=== PATIENT | female | born 1970 | race American Indian/Alaskan Native ===

== ENCOUNTER 2017-04-30 00:01 | Emergency (ER) | payer MEDICARE ==
[2017-04-30] MEDS ORDERED: PROVENTIL IH ONE ×3 (00:09→09:36)
[2017-04-30] MEDS ORDERED: ATROVENT IH ONE ×2 (05:06→09:36)
[2017-04-30 05:34] LABS: Basophils % (Auto) 0.6 % (0.0-1.8); Hematocrit 38.2 % (30.3-42.9); Mean Corpuscular HGB Conc 31 % (30-34); Platelet Count 273 K/mm3 (140-440); Red Blood Count 5.49 M/mm3 (3.65-5.03); Red Cell Distribution Width 16.1 % (13.2-15.2); White Blood Count 10.2 K/mm3 (4.5-11.0)
[2017-04-30 05:39] LABS: Mean Corpuscular Volume 70 fl (79-97)
[2017-04-30 05:40] LABS: Mean Corpuscular Hemoglobin 22 pg (28-32)
--- NOTE | 2017-04-30 05:57 | XRay Report ---
FINAL REPORT EXAM: XR CHEST ROUTINE 2V HISTORY: sob wheezing TECHNIQUE: PA and lateral views of the chest were submitted. Comparison is made to the study of 01/24/2016. FINDINGS: Heart size and mediastinum appear normal. The lungs are clear. Pleural fluid is not seen. The bones and soft tissues do not show any acute changes. IMPRESSION: No active chest disease.
[2017-04-30 05:58] LABS: Alanine Aminotransferase 28 units/L (7-56); Albumin 4.3 g/dL (3.9-5); Albumin/Globulin Ratio 1.5 %; Alkaline Phosphatase 96 units/L (35-129); Anion Gap 21 mmol/L; BUN/Creatinine Ratio 19; Blood Urea Nitrogen 13 mg/dL (7-17); Calcium 9.3 mg/dL (8.4-10.2); Carbon Dioxide 23 mmol/L (22-30); Chloride 102.5 mmol/L (98-107); Glucose 138 mg/dL (65-100); Potassium 4.4 mmol/L (3.6-5.0); Sodium 142 mmol/L (137-145); Total Protein 7.2 g/dL (6.3-8.2)
[2017-04-30] MEDS ORDERED: TESSALON PERLES PO ONE (10:17)
[2017-04-30] MEDS ORDERED: DELTASONE PO ONE (10:17)
--- NOTE | 2017-04-30 10:25 | Emergency Department Report ---
HPI - General Chief Complaint: Adult Asthma Time Seen by Provider: 04/30/17 10:01 - HPI HPI: This is a 46 year-old female who presents to the emergency department with a complaint of shortness of breath, mixed dry and productive cough and some wheezing that has been going on for the past 5-6 days. She does have a history of asthma and says that she has been using her albuterol inhaler and nebulizer treatments without much relief. She has a primary care physician but has been unable to get in to see them. She recently drove to [place] for Thanksgiving with her family. She denies any fever, chest pain, back pain, nausea, vomiting or diaphoresis. She has a history of this asthma, previously diagnosed with hypertension but not currently on medication and has a history of anemia. ED Past Medical Hx - Past Medical History Hx Hypertension: Yes (taken off medication years ago) Hx Heart Attack/AMI: No Hx Congestive Heart Failure: No Hx Diabetes: No Hx Liver Disease: No Hx Seizures: No Hx Asthma: Yes (severe and not on any symbicort while in hospital.) Hx COPD: Yes Additional medical history: anemia - Surgical History Additional Surgical History: AFRO to check for blockage in legs - Social History Smoking Status: Never Smoker Substance Use Type: None - Medications Home Medications: Home Medications Medication Instructions Recorded Confirmed Last Taken Type Montelukast [Singulair] 10 mg PO QDAY 02/10/13 04/30/17 02/10/13 08:00 History Budesoni/Formotero 160-4.5(Nf) 2 puff IH BID #1 inha 09/22/13 04/30/17 Unknown Rx [Symbicort 160-4.5 (Nf)] Multivitamin Tab W-MINERAL 1 each PO QDAY #30 tablet 08/11/14 04/30/17 Unknown Rx [Multiple Vitamin/Mineral (Theragran M)] ALBUTEROL NEB's [Proventil 0.083% 2.5 mg IH TID PRN #1 box 11/10/15 04/30/17 Unknown Rx NEBS] Albuterol Sulfate [Ventolin HFA] 2 puff IH Q4H PRN #1 hfa.aer.ad 11/10/15 Unknown Rx Benzonatate [Tessalon Perles] 100 mg PO Q8HR PRN #20 capsule 04/30/17 Unknown Rx Ferrous Sulfate [Iron] 325 mg PO TID 04/30/17 04/30/17 Unknown History Ranitidine HCl [Acid Platform Software Engineer] 150 mg PO DAILY 04/30/17 04/30/17 Unknown History guaiFENesin/CODEINE [Robitussin AC] 5 ml PO Q6H PRN #100 ml 04/30/17 Unknown Rx predniSONE [Deltasone] 20 mg PO BID #10 tab 04/30/17 Unknown Rx ED Review of Systems ROS: Stated complaint: JACOB Other details as noted in HPI Comment: All other systems reviewed and negative Constitutional: denies: chills, fever Eyes: denies: eye pain, eye discharge, vision change ENT: denies: ear pain, throat pain Respiratory: cough, shortness of breath, wheezing Cardiovascular: denies: chest pain, palpitations Gastrointestinal: denies: abdominal pain, nausea, diarrhea Genitourinary: denies: urgency, dysuria, discharge Musculoskeletal: denies: back pain, joint swelling, arthralgia Skin: denies: rash, lesions Neurological: denies: headache, weakness, paresthesias Physical Exam - Physical Exam Vital Signs: Vital Signs 04/30/17 04/30/17 04/30/17 00:06 00:24 04:59 Temperature 98 F Pulse Rate 116 H 92 H Pulse Rate [ 102 H Anterior Bilateral Throughout] Pulse Rate [ Posterior Bilateral Bases ] Respiratory 24 17 Rate Respiratory 18 Rate [Anterior Bilateral Throughout] Respiratory Rate [Posterior Bilateral Bases] Blood Pressure 151/90 Blood Pressure 182/86 [Left] O2 Sat by Pulse 99 98 Oximetry 04/30/17 04/30/17 04/30/17 06:12 06:14 07:15 Temperature 98.4 F 98.7 F Pulse Rate 109 H 96 H Pulse Rate [ Anterior Bilateral Throughout] Pulse Rate [ Posterior Bilateral Bases ] Respiratory 20 22 15 Rate Respiratory Rate [Anterior Bilateral Throughout] Respiratory Rate [Posterior Bilateral Bases] Blood Pressure Blood Pressure 185/100 150/95 [Left] O2 Sat by Pulse 95 99 Oximetry 04/30/17 04/30/17 09:46 10:11 Temperature Pulse Rate Pulse Rate [ Anterior Bilateral Throughout] Pulse Rate [ 85 88 Posterior Bilateral Bases ] Respiratory Rate Respiratory Rate [Anterior Bilateral Throughout] Respiratory 20 20 Rate [Posterior Bilateral Bases] Blood Pressure Blood Pressure [Left] O2 Sat by Pulse Oximetry Physical Exam: GENERAL: The patient is well-developed well-nourished. HENT: Normocephalic. Atraumatic. Patient has moist mucous membranes. EYES: Extraocular motions are intact. Pupils equal reactive to light bilaterally. NECK: Supple. Trachea is midline. CHEST/LUNGS: Mild wheezing throughout the chest. There is a dry cough heard during examination. No tachypnea accessory muscle use. There is no respiratory distress noted. HEART/CARDIOVASCULAR: Regular. There is no tachycardia. There is no gallop rub or murmur. ABDOMEN: Abdomen is soft, nontender. Patient has normal bowel sounds. Morbidly obese habitus. SKIN: Skin is warm and dry. NEURO: The patient is awake, alert, and oriented. The patient is cooperative. The patient has no focal neurologic deficits. The patient has normal speech. MUSCULOSKELETAL: There is no tenderness or deformity. There is no limitation range of motion. There is no evidence of acute injury. ED Course Vital Signs 04/30/17 04/30/17 04/30/17 00:06 00:24 04:59 Temperature 98 F Pulse Rate 116 H 92 H Pulse Rate [ 102 H Anterior Bilateral Throughout] Pulse Rate [ Posterior Bilateral Bases ] Respiratory 24 17 Rate Respiratory 18 Rate [Anterior Bilateral Throughout] Respiratory Rate [Posterior Bilateral Bases] Blood Pressure 151/90 Blood Pressure 182/86 [Left] O2 Sat by Pulse 99 98 Oximetry 04/30/17 04/30/17 04/30/17 06:12 06:14 07:15 Temperature 98.4 F 98.7 F Pulse Rate 109 H 96 H Pulse Rate [ Anterior Bilateral Throughout] Pulse Rate [ Posterior Bilateral Bases ] Respiratory 20 22 15 Rate Respiratory Rate [Anterior Bilateral Throughout] Respiratory Rate [Posterior Bilateral Bases] Blood Pressure Blood Pressure 185/100 150/95 [Left] O2 Sat by Pulse 95 99 Oximetry 04/30/17 04/30/17 09:46 10:11 Temperature Pulse Rate Pulse Rate [ Anterior Bilateral Throughout] Pulse Rate [ 85 88 Posterior Bilateral Bases ] Respiratory Rate Respiratory Rate [Anterior Bilateral Throughout] Respiratory 20 20 Rate [Posterior Bilateral Bases] Blood Pressure Blood Pressure [Left] O2 Sat by Pulse Oximetry ED Medical Decision Making - Lab Data Result diagrams: 04/30/17 05:16 04/30/17 05:16 - EKG Data -: EKG Interpreted by Me EKG shows normal: sinus rhythm, axis, intervals, QRS complexes (incomplete right bundle branch block), ST-T waves Rate: tachycardia (106 bpm) - EKG Data When compared to previous EKG there are: previous EKG unavailable Interpretation: other (sinus tachycardia at 106 bpm, incomplete right bundle branch block, no ST elevation [place]) - Radiology Data Radiology results: image reviewed interpreted by me: Chest x-ray does not show any acute process. There are no pleural effusions, obvious pneumonia and there is no pneumothorax. - Medical Decision Making The patient presents with 5 day history of some wheezing, shortness of breath and coughing. She received multiple nebulized breathing treatments here and is breathing much more comfortably. Labs are been unremarkable including a negative troponin and negative d-dimer. Chest x-ray does not show any pleural effusion, pneumonia or pneumothorax. She was given some Tessalon Perles for cough and steroids. She feels that she is improved enough to attempt outpatient treatment. She will go home with Tessalon Perles, Robitussin-AC and a five-day course of steroids. She says that she has enough albuterol at home. She will return to the ER with any worsening of her symptoms or any acute distress. Vital signs stable throughout her ED course. - Differential Diagnosis asthma, bronchitis, pneumonia, PE Critical Care Time: No Critical care attestation.: If time is entered above; I have spent that time in minutes in the direct care of this critically ill patient, excluding procedure time. ED Disposition Clinical Impression: Bronchitis Asthma exacerbation Qualifiers: Asthma severity: unspecified severity Asthma persistence: unspecified Qualified Code(s): J45.901 - Unspecified asthma with (acute) exacerbation Disposition: DC-01 TO HOME OR SELFCARE Is pt being admited?: No Condition: Stable Instructions: Asthma (ED), Acute Bronchitis (ED) Additional Instructions: Please follow-up with your primary care physician in the next few days. Use your albuterol inhaler and nebulizer as needed. Take the steroids as prescribed. Return to the emergency Department with any worsening of your symptoms or any acute distress. You have been prescribed a medication that is sedating and therefore should not be taken prior to driving, working, and responsible for children and in no way should be mixed with alcohol of any quantity. Prescriptions: Benzonatate [Tessalon Perles] 100 mg PO Q8HR PRN #20 capsule PRN Reason: Cough guaiFENesin/CODEINE [Robitussin AC] 5 ml PO Q6H PRN #100 ml PRN Reason: Cough predniSONE [Deltasone] 20 mg PO BID #10 tab Referrals: PRIMARY CARE, [Primary Care Provider] - [facility] Time of Disposition: 12:12
[2017-04-30 12:39] VITALS: BP 134/66
== END 2017-04-30 12:52 | disposition home or self-care (01) ==
LOC: ED 00:01 → EEVIPCON 00:01 → ED 12:52
DX: J45.901 Unspecified asthma with (acute) exacerbation (principal); I10 Essential (primary) hypertension; D64.9 Anemia, unspecified; J44.9 Chronic obstructive pulmonary disease, unspecified
CPT/HCPCS: 36415; 71020; 80053; 83880; 84484; 85025; 85379; 93005; 93010; 94640; 99284; J7512

== ENCOUNTER 2017-05-05 01:07 | Emergency (ER) | payer OTHER, MEDICARE ==
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
[2017-05-05] MEDS ORDERED: DUONEB *Not for PRN Use IH ONE (03:17)
[2017-05-05] MEDS ORDERED: PROVENTIL IH ONE (03:17)
[2017-05-05] MEDS ORDERED: ZOFRAN ODT PO ONE (03:18)
[2017-05-05 03:36] LABS: Bilirubin,Urine NEG (Negative); Blood,Urine LG (Negative); Ketones,Urine NEG (Negative); Leukocyte Esterase,Urine TR (Negative); Mucus,Urine 1+ /HPF; Nitrite,Urine NEG (Negative); Urobilinogen,Urine < 2.0 mg/dL (<2.0)
[2017-05-05 03:48] LABS: RBC,Urine > 182.0 /HPF (0.0-6.0)
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
[2017-05-05] MEDS ORDERED: TYLENOL PO ONE (04:13)
[2017-05-05 04:40] VITALS: BP 165/103
== END 2017-05-05 04:38 | disposition home or self-care (01) ==
LOC: ED 01:07
DX: M54.5 Low back pain (principal); J45.21 Mild intermittent asthma with (acute) exacerbation; I10 Essential (primary) hypertension; J44.9 Chronic obstructive pulmonary disease, unspecified; D64.9 Anemia, unspecified; Z91.010 Allergy to peanuts; Z91.018 Allergy to other foods; V89.2XXA Person injured in unspecified motor-vehicle accident, traffic, initial encounter; Y93.89 Activity, other specified; Y99.8 Other external cause status; Y92.488 Other paved roadways as the place of occurrence of the external cause
CPT/HCPCS: 72100; 81001; 81025; Q0162

== ENCOUNTER 2018-09-23 22:11 | Emergency (ER) | payer MEDICARE ==
[2018-09-23 23:00] VITALS: BP 169/99
--- NOTE | 2018-09-24 01:30 | Emergency Department Report ---
ED Lower Extremity HPI - General Chief Complaint: Extremity Injury, Lower Stated Complaint: RIGHT KNEE ANKLE Time Seen by Provider: 09/24/18 01:24 Source: patient Mode of arrival: Ambulatory Limitations: No Limitations - History of Present Illness Initial Comments: 48-year-old obese female comes to the emergency room stating that she stepped off a curb Friday and fell. Patient complains of right knee abrasion and pain in right ankle pain with swelling. Patient states that she has been taking ibuprofen. Patient reports pain is worse with standing and bearing weight. Patient last took ibuprofen at 9 AM yesterday. Complaint: knee injury (rt), ankle injury (rt) -: days(s) (3) Injury: Knee: Right, Ankle: Right Type of Injury: inversion Place: street/outdoors Severity: severe Severity scale (0 -10): 8 Improves With: nothing Worsens With: weight bearing, movement, palpation Context: fall Associated Symptoms: swelling, unable to bear weight Treatments Prior to Arrival: NSAIDS - Related Data Home Medications Medication Instructions Recorded Confirmed Last Taken Montelukast [Singulair] 10 mg PO QDAY 02/10/13 04/30/17 02/10/13 08:00 Ferrous Sulfate [Iron] 325 mg PO TID 04/30/17 04/30/17 Unknown Ranitidine HCl [Acid Dry Chain Offbearer] 150 mg PO DAILY 04/30/17 04/30/17 Unknown Previous Rx's Medication Instructions Recorded Last Taken Type Budesoni/Formotero 160-4.5(Nf) 2 puff IH BID #1 inha 09/22/13 Unknown Rx [Symbicort 160-4.5 (Nf)] Multivitamin Tab W-MINERAL 1 each PO QDAY #30 tablet 08/11/14 Unknown Rx [Multiple Vitamin/Mineral (Theragran M)] ALBUTEROL NEB's [Proventil 0.083% 2.5 mg IH TID PRN #1 box 11/10/15 Unknown Rx NEBS] Albuterol Sulfate [Ventolin HFA] 2 puff IH Q4H PRN #1 hfa.aer.ad 11/10/15 Unknown Rx Benzonatate [Tessalon Perles] 100 mg PO Q8HR PRN #20 capsule 04/30/17 Unknown Rx guaiFENesin/CODEINE [Robitussin AC] 5 ml PO Q6H PRN #100 ml 04/30/17 Unknown Rx predniSONE [Deltasone] 20 mg PO BID #10 tab 04/30/17 Unknown Rx Acetaminophen [Acetaminophen TAB] 500 mg PO Q6HR PRN #30 tablet 05/05/17 Unknown Rx Cyclobenzaprine [Flexeril] 10 mg PO TID PRN #10 tablet 05/05/17 Unknown Rx Ibuprofen [Motrin 800 MG tab] 800 mg PO Q8HR PRN #30 tablet 09/24/18 Unknown Rx Allergies Allergy/AdvReac Type Severity Reaction Status Date / Time peanut Allergy Severe Hives Verified 08/24/14 14:29 MUSHROOMS Allergy Severe Swelling Uncoded 08/24/14 14:29 SEASALT Allergy Intermediate Hives Uncoded 08/24/14 14:29 ED Review of Systems ROS: Stated complaint: RIGHT KNEE ANKLE Other details as noted in HPI Constitutional: denies: chills, fever Eyes: denies: eye pain, eye discharge, vision change ENT: denies: ear pain, throat pain Respiratory: denies: cough, shortness of breath, wheezing Cardiovascular: denies: chest pain, palpitations Endocrine: no symptoms reported Gastrointestinal: denies: abdominal pain, nausea, diarrhea Genitourinary: denies: urgency, dysuria, discharge Musculoskeletal: joint swelling (knee, ankle), arthralgia. denies: back pain Skin: denies: rash, lesions Neurological: denies: headache, weakness, paresthesias Psychiatric: denies: anxiety, depression Hematological/Lymphatic: denies: easy bleeding, easy bruising ED Past Medical Hx - Past Medical History Previous Medical History?: Yes Hx Hypertension: Yes (taken off medication years ago) Hx Heart Attack/AMI: No Hx Congestive Heart Failure: No Hx Diabetes: No Hx Liver Disease: No Hx Seizures: No Hx Asthma: Yes (severe and not on any symbicort while in hospital.) Hx COPD: Yes Additional medical history: anemia, OBESITY - Surgical History Past Surgical History?: Yes Additional Surgical History: AFRO to check for blockage in legs - Social History Smoking Status: Never Smoker Substance Use Type: None - Medications Home Medications: Home Medications Medication Instructions Recorded Confirmed Last Taken Type Montelukast [Singulair] 10 mg PO QDAY 02/10/13 04/30/17 02/10/13 08:00 History Budesoni/Formotero 160-4.5(Nf) 2 puff IH BID #1 inha 09/22/13 04/30/17 Unknown Rx [Symbicort 160-4.5 (Nf)] Multivitamin Tab W-MINERAL 1 each PO QDAY #30 tablet 08/11/14 04/30/17 Unknown Rx [Multiple Vitamin/Mineral (Theragran M)] ALBUTEROL NEB's [Proventil 0.083% 2.5 mg IH TID PRN #1 box 11/10/15 04/30/17 Unknown Rx NEBS] Albuterol Sulfate [Ventolin HFA] 2 puff IH Q4H PRN #1 hfa.aer.ad 11/10/15 04/30/17 Unknown Rx Benzonatate [Tessalon Perles] 100 mg PO Q8HR PRN #20 capsule 04/30/17 Unknown Rx Ferrous Sulfate [Iron] 325 mg PO TID 04/30/17 04/30/17 Unknown History Ranitidine HCl [Acid Dry Chain Offbearer] 150 mg PO DAILY 04/30/17 04/30/17 Unknown History guaiFENesin/CODEINE [Robitussin AC] 5 ml PO Q6H PRN #100 ml 04/30/17 Unknown Rx predniSONE [Deltasone] 20 mg PO BID #10 tab 04/30/17 Unknown Rx Acetaminophen [Acetaminophen TAB] 500 mg PO Q6HR PRN #30 tablet 05/05/17 Unknown Rx Cyclobenzaprine [Flexeril] 10 mg PO TID PRN #10 tablet 05/05/17 Unknown Rx Ibuprofen [Motrin 800 MG tab] 800 mg PO Q8HR PRN #30 tablet 09/24/18 Unknown Rx ED Physical Exam - General Limitations: No Limitations General appearance: obese - Head Head exam: Present: atraumatic, normocephalic - Eye Eye exam: Present: EOMI - ENT ENT exam: Present: mucous membranes moist - Neck Neck exam: Present: normal inspection, full ROM - Cardiovascular Cardiovascular Exam: Present: regular rate, normal rhythm. Absent: systolic murmur, diastolic murmur, rubs, gallop - Expanded Lower Extremity Exam Right Hip exam: Present: full ROM Knee exam: Present: tenderness, swelling, abrasion Ankle exam: Present: tenderness, swelling Foot/Toe exam: Present: tenderness, swelling Neuro vascular tendon exam: Present: no vascular compromise ED Course Vital Signs 09/23/18 22:59 Temperature 98.7 F Pulse Rate 96 H Respiratory 18 Rate Blood Pressure 169/99 O2 Sat by Pulse 98 Oximetry ED Lower Extremity MDM - Radiology Data Radiology results: report reviewed Patient: GALEN ROBERTSON MR#: [id number] : 1970 Acct:[id number] Age/Sex: 48 / F ADM Date: 09/23/18 Loc: ED Attending Dr: Ordering Physician: CHRISTEN STOREY Date of Service: 09/24/18 Procedure(s): XR knee 1-2V RT Accession Number(s): [id number] cc: CHRISTEN STOREY Fluoro Time In Minutes: PROCEDURE: XR KNEE 1-2V RT TECHNIQUE: AP and lateral views of the right knee were obtained. HISTORY: fell rt knee pain COMPARISONS: None FINDINGS: There is mild narrowing of the medial and patellofemoral compartments. There is mild marginal spurring medially. The lateral compartment appears intact. There is no evidence of fracture or joint effusion. IMPRESSION: Mild osteoarthrosis changes of the medial and patellofemoral comparisons. Negative for fracture or joint effusion.. This document is electronically signed by Rachana Garcia MD., September 24 2018 03:13:48 AM ET Transcribed By: RB Dictated By: RACHANA GARCIA MD Electronically Authenticated By: RACHANA GARCIA MD Signed Date/Time: 09/24/18315 DD/ 7 TD/TT: 09/24/18309 Patient: GALEN ROBERTSON MR#: [id number] : 1970 Acct:[id number] Age/Sex: 48 / F ADM Date: 09/23/18 Loc: ED Attending Dr: Ordering Physician: CHRISTEN STOREY Date of Service: 09/24/18 Procedure(s): XR ankle 2V RT Accession Number(s): [id number] cc: CHRISTEN STOREY Fluoro Time In Minutes: PROCEDURE: XR ANKLE 2V RT TECHNIQUE: AP and lateral views of the right ankle were obtained. HISTORY: fell ankle pain and swelling COMPARISONS: None FINDINGS: There is soft tissue swelling around the ankle. There is no evidence of fracture or dislocation. The ankle mortise appears well-maintained. IMPRESSION: Soft tissue swelling around the ankle. No evidence of fracture.. This document is electronically signed by Rachana Garcia MD., September 24 2018 03:12:44 AM ET Transcribed By: TINA Dictated By: RACHANA GARCIA MD Electronically Authenticated By: RACHANA GARCIA MD Signed Date/Time: 09/24/18313 DD/ 7 TD/TT: 09/24/18307 - Medical Decision Making Assessment evaluated by this provider fast. X-ray of right knee and right ankle are negative for any acute fractures or dislocation. Patient was given ibuprofen for pain management. Patient will have ankle wrapped with Roe bandage in place on crutches. Patient to follow-up with her primary care provider if symptoms persist or gets worse Critical care attestation.: If time is entered above; I have spent that time in minutes in the direct care of this critically ill patient, excluding procedure time. ED Disposition Clinical Impression: Moderate right ankle sprain, Contusion of right knee Disposition: DC-01 TO HOME OR SELFCARE Is pt being admited?: No Does the pt Need Aspirin: No Condition: Stable Instructions: Osteoarthritis (ED), Ankle Sprain (ED) Additional Instructions: Continue with pain medication. Ice to ankle use crutches to help ambulate. Follow up with her primary care provider or orthopedic provider. Prescriptions: Ibuprofen [Motrin 800 MG tab] 800 mg PO Q8HR PRN #30 tablet PRN Reason: Pain , Severe (7-10) Referrals: RACHANA VERDE MD [Staff Physician] - 3-5 Days Forms: Work/School Release Form(ED)
[2018-09-24] MEDS ORDERED: IBUPROFEN PO ONE (01:43)
[2018-09-24] MEDS ORDERED: TYLENOL PO ONE (01:44)
--- NOTE | 2018-09-24 03:14 | XRay Report ---
PROCEDURE: XR ANKLE 2V RT TECHNIQUE: AP and lateral views of the right ankle were obtained. HISTORY: fell ankle pain and swelling COMPARISONS: None FINDINGS: There is soft tissue swelling around the ankle. There is no evidence of fracture or dislocation. The ankle mortise appears well-maintained. IMPRESSION: Soft tissue swelling around the ankle. No evidence of fracture.. This document is electronically signed by Ravinder Garcia MD., September 24 2018 03:12:44 AM ET
--- NOTE | 2018-09-24 03:16 | XRay Report ---
PROCEDURE: XR KNEE 1-2V RT TECHNIQUE: AP and lateral views of the right knee were obtained. HISTORY: fell rt knee pain COMPARISONS: None FINDINGS: There is mild narrowing of the medial and patellofemoral compartments. There is mild marginal spurrin g medially. The lateral compartment appears intact. There is no evidence of fracture or joint effusio n. IMPRESSION: Mild osteoarthrosis changes of the medial and patellofemoral comparisons. Negative for fracture or kayla int effusion.. This document is electronically signed by Ravinder Garcia MD., September 24 2018 03:13:48 AM ET
== END 2018-09-24 07:01 | disposition home or self-care (01) ==
LOC: ED 22:11
DX: S93.401A Sprain of unspecified ligament of right ankle, initial encounter (principal); S80.01XA Contusion of right knee, initial encounter; W18.30XA Fall on same level, unspecified, initial encounter; Y93.89 Activity, other specified; Y92.89 Other specified places as the place of occurrence of the external cause; Y99.8 Other external cause status

== ENCOUNTER 2018-11-25 12:57 | Emergency (ER) | payer MEDICARE ==
[2018-11-25] MEDS ORDERED: TYLENOL PO ONE (13:42)
[2018-11-25] MEDS ORDERED: IBUPROFEN PO ONE (13:42)
--- NOTE | 2018-11-25 13:44 | Emergency Department Report ---
ED General Adult HPI - General Chief complaint: Dyspnea/Respdistress Stated complaint: SOB Time Seen by Provider: 11/25/18 13:28 Source: patient, EMS (ems notes not available at time of chart dictation), RN notes reviewed, old records reviewed Mode of arrival: Ambulatory Limitations: Physical Limitation - History of Present Illness Initial comments: Primary care Dr.: Dr Gerri Camejo Cardiology: Dr Fernandez Pulmonology: Dr Us Chest medical history: Morbid obesity, chronic lower extremity pain, asthma, chronic steroid dependence This is a pleasant 48-year-old female. The patient states she is not . The patient reports no DVT or pulmonary embolus risk factors. The patient states she is not delivered her given within the past 6 weeks. The patient presents to the emergency room with a complaint of painless shortness of breath, intermittent over the past 6 weeks. Patient reports his shortness of breath worsens with physical exertion. 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 The patient also describes a frontal headache for one week. The headache is not sudden or thunderclap in nature. It has not reached maximal intensity within an hour. It is not the most intense headache of her life. There is no visual loss. There is no sore throat. There is currently no chest pain. There is intermittent shortness of breath. This currently no abdominal pain. There are no urinary symptoms. There is chronic right knee pain, and right ankle pain. There are no new skin lesions. The patient saw her manager audio yesterday, who started her on HCTZ. Patient had an echocardiogram in 2018, which stem assured and a normal ejection fraction, and a nuclear stress test, in May 2018, which was negative for ischemia. She is not sure she's had a sleep study. -: Gradual, week(s) Severity scale (0 -10): 4 Consistency: intermittent Improves with: rest Worsens with: movement - Related Data Home Medications Medication Instructions Recorded Confirmed Last Taken Montelukast [Singulair] 10 mg PO QDAY 02/10/13 04/30/17 02/10/13 08:00 Ferrous Sulfate [Iron] 325 mg PO TID 04/30/17 04/30/17 Unknown Ranitidine HCl [Acid Escrow Agent] 150 mg PO DAILY 04/30/17 04/30/17 Unknown Previous Rx's Medication Instructions Recorded Last Taken Type Budesoni/Formotero 160-4.5(Nf) 2 puff IH BID #1 inha 09/22/13 Unknown Rx [Symbicort 160-4.5 (Nf)] Multivitamin Tab W-MINERAL 1 each PO QDAY #30 tablet 08/11/14 Unknown Rx [Multiple Vitamin/Mineral (Theragran M)] ALBUTEROL NEB's [Proventil 0.083% 2.5 mg IH TID PRN #1 box 11/10/15 Unknown Rx NEBS] Albuterol Sulfate [Ventolin HFA] 2 puff IH Q4H PRN #1 hfa.aer.ad 11/10/15 Unknown Rx Benzonatate [Tessalon Perles] 100 mg PO Q8HR PRN #20 capsule 04/30/17 Unknown Rx guaiFENesin/CODEINE [Robitussin AC] 5 ml PO Q6H PRN #100 ml 04/30/17 Unknown Rx predniSONE [Deltasone] 20 mg PO BID #10 tab 04/30/17 Unknown Rx Acetaminophen [Acetaminophen TAB] 500 mg PO Q6HR PRN #30 tablet 05/05/17 Unknown Rx Cyclobenzaprine [Flexeril] 10 mg PO TID PRN #10 tablet 05/05/17 Unknown Rx Ibuprofen [Motrin 800 MG tab] 800 mg PO Q8HR PRN #30 tablet 09/24/18 Unknown Rx Allergies Allergy/AdvReac Type Severity Reaction Status Date / Time peanut Allergy Severe Hives Verified 08/24/14 14:29 MUSHROOMS Allergy Severe Swelling Uncoded 08/24/14 14:29 SEASALT Allergy Intermediate Hives Uncoded 08/24/14 14:29 ED Review of Systems ROS: Stated complaint: SOB Other details as noted in HPI Constitutional: malaise, weakness. denies: fever Eyes: denies: eye discharge ENT: denies: congestion Respiratory: shortness of breath Cardiovascular: denies: chest pain, syncope Gastrointestinal: denies: abdominal pain Genitourinary: denies: dysuria Musculoskeletal: arthralgia, myalgia Skin: denies: lesions Neurological: headache. denies: weakness, numbness, paresthesias, confusion Psychiatric: anxiety ED Past Medical Hx - Past Medical History Previous Medical History?: Yes Hx Hypertension: Yes (taken off medication years ago) Hx CVA: No Hx Heart Attack/AMI: No Hx Congestive Heart Failure: No Hx Diabetes: No Hx Deep Vein Thrombosis: No Hx Pulmonary Embolism: No Hx GERD: No Hx Liver Disease: No Hx Renal Disease: No Hx of Cancer: No Hx Sickle Cell Disease: No Hx Arthritis: No Hx Headaches / Migraines: No Hx Seizures: No Hx Kidney Stones: No Hx Psychiatric Treatment: No Hx Asthma: Yes (severe and not on any symbicort while in hospital.) Hx COPD: Yes Hx Tuberculosis: No Hx Dementia: No Hx HIV: No Additional medical history: anemia, OBESITY - Surgical History Past Surgical History?: Yes Hx Coronary Stent: No Hx Open Heart Surgery: No Hx Pacemaker: No Hx Internal Defibrillator: No Hx Cholecystectomy: No Hx Appendectomy: No Hx Breast Surgery: No Additional Surgical History: AFRO to check for blockage in legs - Social History Smoking Status: Never Smoker - Medications Home Medications: Home Medications Medication Instructions Recorded Confirmed Last Taken Type Montelukast [Singulair] 10 mg PO QDAY 02/10/13 04/30/17 02/10/13 08:00 History Budesoni/Formotero 160-4.5(Nf) 2 puff IH BID #1 inha 09/22/13 04/30/17 Unknown Rx [Symbicort 160-4.5 (Nf)] Multivitamin Tab W-MINERAL 1 each PO QDAY #30 tablet 08/11/14 04/30/17 Unknown Rx [Multiple Vitamin/Mineral (Theragran M)] ALBUTEROL NEB's [Proventil 0.083% 2.5 mg IH TID PRN #1 box 11/10/15 04/30/17 Unknown Rx NEBS] Albuterol Sulfate [Ventolin HFA] 2 puff IH Q4H PRN #1 hfa.aer.ad 11/10/15 04/30/17 Unknown Rx Benzonatate [Tessalon Perles] 100 mg PO Q8HR PRN #20 capsule 04/30/17 Unknown Rx Ferrous Sulfate [Iron] 325 mg PO TID 04/30/17 04/30/17 Unknown History Ranitidine HCl [Acid Escrow Agent] 150 mg PO DAILY 04/30/17 04/30/17 Unknown History guaiFENesin/CODEINE [Robitussin AC] 5 ml PO Q6H PRN #100 ml 04/30/17 Unknown Rx predniSONE [Deltasone] 20 mg PO BID #10 tab 04/30/17 Unknown Rx Acetaminophen [Acetaminophen TAB] 500 mg PO Q6HR PRN #30 tablet 05/05/17 Unknown Rx Cyclobenzaprine [Flexeril] 10 mg PO TID PRN #10 tablet 05/05/17 Unknown Rx Ibuprofen [Motrin 800 MG tab] 800 mg PO Q8HR PRN #30 tablet 09/24/18 Unknown Rx ED Physical Exam - General Limitations: Physical Limitation General appearance: alert, in no apparent distress, obese - Head Head exam: Present: atraumatic, normocephalic - Eye Eye exam: Present: normal appearance, EOMI, other (visual acuity intact to finger counting, color perception, reading at a close distance). Absent: nystagmus - ENT ENT exam: Present: normal exam, normal orophraynx, mucous membranes moist, normal external ear exam - Neck Neck exam: Present: normal inspection, full ROM. Absent: tenderness, meningismus - Respiratory Respiratory exam: Present: normal lung sounds bilaterally. Absent: respiratory distress - Cardiovascular Cardiovascular Exam: Present: regular rate, normal rhythm. Absent: bradycardia, tachycardia, irregular rhythm, systolic murmur, diastolic murmur, rubs, gallop - GI/Abdominal GI/Abdominal exam: Present: soft. Absent: distended, tenderness, guarding, rebound, rigid, pulsatile mass - Extremities Exam Extremities exam: Present: normal inspection, full ROM, pedal edema, other (2+ pulses noted in the bilateral upper, lower extremities. Compartments soft. No long bony tenderness. The pelvis is stable.) - Back Exam Back exam: Present: normal inspection, full ROM. Absent: tenderness, CVA tenderness (R), CVA tenderness (L), paraspinal tenderness, vertebral tenderness - Neurological Exam Neurological exam: Present: alert (there is no past-pointing. There is normal [id number]. There is negative pronator drift.), oriented X3, other (Extraocular movements intact. Tongue midline. No facial droop. Facial sensation intact to light touch in the V1, V2, V3 distribution bilaterally. 5 and 5 strength in 4 extremities.. Sensation is intact to light touch in 4 extremities.). Absent: motor sensory deficit - Psychiatric Psychiatric exam: Present: anxious - Skin Skin exam: Present: warm, dry, intact, normal color. Absent: rash ED Course Vital Signs 11/25/18 11/25/18 11/25/18 13:04 13:10 13:23 Temperature 98.6 F Pulse Rate 77 Respiratory 16 16 Rate Blood Pressure 182/88 Blood Pressure 182/88 [Right] O2 Sat by Pulse 99 99 99 Oximetry 11/25/18 11/25/18 11/25/18 13:31 14:00 14:31 Temperature Pulse Rate 73 71 64 Respiratory 14 9 L 20 Rate Blood Pressure 182/88 181/94 181/94 Blood Pressure [Right] O2 Sat by Pulse 97 96 97 Oximetry 11/25/18 11/25/18 15:01 15:31 Temperature Pulse Rate Respiratory 13 16 Rate Blood Pressure 168/61 181/94 Blood Pressure [Right] O2 Sat by Pulse 94 99 Oximetry - Reevaluation(s) Reevaluation #1: 11/25/18 14:57 Differential diagnosis, including but not limited to: Pulmonary hypertension, obstructive sleep apnea, pneumonia, obesity hypoventilation syndrome, acute coronary syndrome Assessment and plan: 48-year-old female, no pulmonary embolus or DVT risk factors, low risk by well's criteria, perc negative, contacted covering cardiology, Evelin Gonzalez, who is able to corroborate and confirm that patient had a normal echocardiogram and a normal nuclear stress test within the past year, most likely experiencing symptoms of undiagnosed obstructive sleep apnea, physical deconditioning, and probable obesity hypoventilation syndrome. Troponin negative 1, EKG appears to be unchanged from prior, contacted her pr darvinate soda maker, Dr. Us, who agreed to see the patient tomorrow warning in the office for follow-up. 11/25/18 14:59 Secondary complaint of headache is appreciated, headache present for one week, does not appear to have any concerning historical factors or features, hypertension reviewed and appreciated, she can follow up with her primary care doctor manager audio for this. We'll treat her headache. She is saturating well, not tachycardic, not tachypnea, and not hypoxic currently. Reevaluation #3: 11/25/18 16:43 Troponin negative 2. EKG unchanged 2. Vital signs reviewed and appreciated. Resting comfortably. No desaturations. We will discharge. Has follow-up tomorrow with pulmonology. ED Medical Decision Making - Lab Data Result diagrams: 11/25/18 13:42 11/25/18 13:42 Vital Signs 11/25/18 11/25/18 11/25/18 13:04 13:10 13:23 Temperature 98.6 F Pulse Rate 77 Respiratory 16 16 Rate Blood Pressure 182/88 Blood Pressure 182/88 [Right] O2 Sat by Pulse 99 99 99 Oximetry 11/25/18 11/25/18 13:31 14:00 Temperature Pulse Rate 73 71 Respiratory 14 9 L Rate Blood Pressure 182/88 181/94 Blood Pressure [Right] O2 Sat by Pulse 97 96 Oximetry Lab Results 11/25/18 11/25/18 11/25/18 Range/Units 13:42 13:42 14:03 WBC 5.6 (4.5-11.0) K/mm3 RBC 5.55 H (3.65-5.03) M/mm3 Hgb 11.8 (10.1-14.3) gm/dl Hct 38.3 (30.3-42.9) % MCV 69 L (79-97) fl MCH 21 L (28-32) pg MCHC 31 (30-34) % RDW 16.7 H (13.2-15.2) % Plt Count 238 (140-440) K/mm3 Lymph % (Auto) 22.9 (13.4-35.0) % Barry % (Auto) 7.0 (0.0-7.3) % Eos % (Auto) 1.2 (0.0-4.3) % Baso % (Auto) 0.8 (0.0-1.8) % Lymph # 1.3 (1.2-5.4) K/mm3 Barry # 0.4 (0.0-0.8) K/mm3 Eos # 0.1 (0.0-0.4) K/mm3 Baso # 0.0 (0.0-0.1) K/mm3 Seg Neutrophils % 68.1 (40.0-70.0) % Seg Neutrophils # 3.8 (1.8-7.7) K/mm3 Sodium 142 (137-145) mmol/L Potassium 4.1 (3.6-5.0) mmol/L Chloride 104.6 (98-107) mmol/L Carbon Dioxide 26 (22-30) mmol/L Anion Gap 16 mmol/L BUN 8 (7-17) mg/dL Creatinine 0.6 L (0.7-1.2) mg/dL Estimated GFR > 60 ml/min BUN/Creatinine Ratio 13 % Glucose 95 (65-100) mg/dL Calcium 9.0 (8.4-10.2) mg/dL Troponin T < 0.010 (0.00-0.029) ng/mL NT-Pro-B Natriuret Pep 62.29 (0-450) pg/mL HCG, Quant < 2 (0-4) mIU/mL - EKG Data -: EKG Interpreted by Me EKG shows normal: sinus rhythm Rate: normal - EKG Data 11/25/18 15:01 This is a normal sinus rhythm, 65 bpm, left axis deviation, left anterior fascicular block, low voltage, not having chest pain, this is an abnormal EKG, this EKG is not consistent with an ST elevation myocardial infarction, appears to be grossly unchanged from prior EKG from 2016, with the exception of more pronounced left axis deviation. This may be related to lead placement. - Radiology Data Radiology results: pending Critical care attestation.: If time is entered above; I have spent that time in minutes in the direct care of this critically ill patient, excluding procedure time. ED Disposition Clinical Impression: History of dyspnea, Morbid obesity with body mass index of 50 or higher Disposition: DC-01 TO HOME OR SELFCARE Is pt being admited?: No Does the pt Need Aspirin: No Condition: Stable Additional Instructions: Continue outpatient medications. Follow-up with her soda maker tomorrow at 9:30, at the following address, for further evaluation for probable sleep apnea. Address: [facility] [address], [place] [address] Hours: Open now Add full hours Recommend aggressive weight loss, diet and lifestyle modifications to facilitate an enhanced weight loss. Please return to the emergency room right away with new, worsening or different symptoms, or symptoms not present on the initial emergency room evaluation. Follow-up with her primary care doctor or manager audio within the next month, or as scheduled. Referrals: KALPESH APONTE MD [Primary Care Provider] - 3-5 Days DARYA US MD [Staff Physician] - 24 Hours (Address: [facility] [address], [place] [id number] Hours: Open now Add full hours Patient has an appointment tomorrow at 9:30 in the morning, 11/26/2018, with her soda maker.)
[2018-11-25 14:13] LABS: Basophils % (Auto) 0.8 % (0.0-1.8); Eosinophils # (Auto) 0.1 K/mm3 (0.0-0.4); Eosinophils % (Auto) 1.2 % (0.0-4.3); Lymphocytes # (Auto) 1.3 K/mm3 (1.2-5.4); Lymphocytes % (Auto) 22.9 % (13.4-35.0); Mean Corpuscular HGB Conc 31 % (30-34); Monocytes # (Auto) 0.4 K/mm3 (0.0-0.8); Platelet Count 238 K/mm3 (140-440); Red Blood Count 5.55 M/mm3 (3.65-5.03); Red Cell Distribution Width 16.7 % (13.2-15.2)
[2018-11-25 14:16] LABS: Hematocrit 38.3 % (30.3-42.9); Hemoglobin 11.8 gm/dl (10.1-14.3); Mean Corpuscular Volume 69 fl (79-97)
[2018-11-25 14:28] LABS: BUN/Creatinine Ratio 13; Blood Urea Nitrogen 8 mg/dL (7-17); Hemolysis Index 5
--- NOTE | 2018-11-25 15:13 | XRay Report ---
AP CHEST: HISTORY: Dyspnea AP view of the chest demonstrates a normal mediastinal and cardiac contour with clear lungs and normal bony and soft tissue structures. IMPRESSION: Unremarkable AP chest.
[2018-11-25 16:54] VITALS: BP 170/91
== END 2018-11-25 16:54 | disposition home or self-care (01) ==
LOC: ED 12:57
DX: J45.909 Unspecified asthma, uncomplicated (principal); I10 Essential (primary) hypertension; E66.01 Morbid (severe) obesity due to excess calories; Z68.44 Body mass index [BMI] 60.0-69.9, adult; Z79.1 Long term (current) use of non-steroidal anti-inflammatories (NSAID); Z79.899 Other long term (current) drug therapy; Z91.010 Allergy to peanuts; Z91.018 Allergy to other foods; Z86.2 Personal history of diseases of the blood and blood-forming organs and certain disorders involving the immune mechanism
CPT/HCPCS: 36415; 71045; 80048; 83880; 84484; 84702; 85025; 93005; 93010; 99284

== ENCOUNTER 2019-05-19 05:01 | Emergency (ER) | payer MEDICARE ==
[2019-05-19] MEDS ORDERED: IPRATROPIUM/ALBUTEROL SULFATE 3 ML AMPUL.NEB IH ONE (05:23)
[2019-05-19] MEDS ORDERED: MAGNESIUM SULFATE 2 GM/50 ML BAG IV ONE (05:23)
[2019-05-19] MEDS ORDERED: dexAMETHasone 20 MG/5 ML VIAL IM ONE (05:23)
--- NOTE | 2019-05-19 05:28 | Emergency Department Report ---
ED Asthma HPI - General Chief Complaint: Upper Respiratory Infection Stated Complaint: PINK EYE/ASTHMA/COUGH Time Seen by Provider: 05/19/19 05:19 Source: patient Mode of arrival: Ambulatory Limitations: No Limitations - History of Present Illness Initial Comments: This is a 48-year-old female with a history of asthma presents to ED complaining of intermittent cough and for the past couple of days. Patient states she's been coughing up yellow sputum. Patient is also complaining of bilateral eye drainage and redness to both eyes. Patient denies foreign object in the eye or trauma to the eye. She states that she does have a nebulizer machine at home as well as inhaler. Patient denies fevers/chills/nausea vomiting MD Complaint: "asthma attack" - Related Data Home Medications Medication Instructions Recorded Confirmed Last Taken Montelukast [Singulair] 10 mg PO QDAY 02/10/13 04/30/17 02/10/13 08:00 Ferrous Sulfate [Iron] 325 mg PO TID 04/30/17 04/30/17 Unknown raNITIdine HCl [Acid Naval Designer] 150 mg PO DAILY 04/30/17 04/30/17 Unknown Previous Rx's Medication Instructions Recorded Last Taken Type Budesoni/Formotero 160-4.5(Nf) 2 puff IH BID #1 inha 09/22/13 Unknown Rx [Symbicort 160-4.5 (Nf)] Multivitamin Tab W-MINERAL 1 each PO QDAY #30 tablet 08/11/14 Unknown Rx [Multiple Vitamin/Mineral (Theragran M)] ALBUTEROL NEB's [Proventil 0.083% 2.5 mg IH TID PRN #1 box 11/10/15 Unknown Rx NEBS] Albuterol Sulfate [Ventolin HFA] 2 puff IH Q4H PRN #1 hfa.aer.ad 11/10/15 Unknown Rx guaiFENesin/CODEINE [Robitussin AC] 5 ml PO Q6H PRN #100 ml 04/30/17 Unknown Rx Acetaminophen [Acetaminophen TAB] 500 mg PO Q6HR PRN #30 tablet 05/05/17 Unknown Rx Cyclobenzaprine [Flexeril] 10 mg PO TID PRN #10 tablet 05/05/17 Unknown Rx Ibuprofen [Motrin 800 MG tab] 800 mg PO Q8HR PRN #30 tablet 09/24/18 Unknown Rx Azithromycin [Zithromax Z-KADEEM] 250 mg PO DAILY #6 tablet 05/19/19 Unknown Rx Benzonatate [Tessalon Perles] 100 mg PO Q8HR PRN #20 capsule 05/19/19 Unknown Rx Tobramycin [Tobrex] 1 - 2 drops OP TID #5 ml 05/19/19 Unknown Rx predniSONE [Deltasone] 20 mg PO BID #10 tab 05/19/19 Unknown Rx Allergies Allergy/AdvReac Type Severity Reaction Status Date / Time peanut Allergy Severe Hives Verified 08/24/14 14:29 MUSHROOMS Allergy Severe Swelling Uncoded 08/24/14 14:29 SEASALT Allergy Intermediate Hives Uncoded 08/24/14 14:29 ED Review of Systems ROS: Stated complaint: PINK EYE/ASTHMA/COUGH Other details as noted in HPI Comment: All other systems reviewed and negative ED Past Medical Hx - Past Medical History Hx Hypertension: Yes (taken off medication years ago) Hx CVA: No Hx Heart Attack/AMI: No Hx Congestive Heart Failure: No Hx Diabetes: No Hx Deep Vein Thrombosis: No Hx Pulmonary Embolism: No Hx GERD: No Hx Liver Disease: No Hx Renal Disease: No Hx Sickle Cell Disease: No Hx Arthritis: No Hx Headaches / Migraines: No Hx Seizures: No Hx Kidney Stones: No Hx Psychiatric Treatment: No Hx Asthma: Yes (severe and not on any symbicort while in hospital.) Hx COPD: Yes Hx Tuberculosis: No Hx Dementia: No Hx HIV: No Additional medical history: anemia, OBESITY - Surgical History Hx Coronary Stent: No Hx Open Heart Surgery: No Hx Pacemaker: No Hx Internal Defibrillator: No Hx Cholecystectomy: No Hx Appendectomy: No Hx Breast Surgery: No Additional Surgical History: AFRO to check for blockage in legs - Social History Smoking Status: Never Smoker Substance Use Type: None - Medications Home Medications: Home Medications Medication Instructions Recorded Confirmed Last Taken Type Montelukast [Singulair] 10 mg PO QDAY 02/10/13 04/30/17 02/10/13 08:00 History Budesoni/Formotero 160-4.5(Nf) 2 puff IH BID #1 inha 09/22/13 04/30/17 Unknown Rx [Symbicort 160-4.5 (Nf)] Multivitamin Tab W-MINERAL 1 each PO QDAY #30 tablet 08/11/14 04/30/17 Unknown Rx [Multiple Vitamin/Mineral (Theragran M)] ALBUTEROL NEB's [Proventil 0.083% 2.5 mg IH TID PRN #1 box 11/10/15 04/30/17 Unknown Rx NEBS] Albuterol Sulfate [Ventolin HFA] 2 puff IH Q4H PRN #1 hfa.aer.ad 11/10/15 04/30/17 Unknown Rx Ferrous Sulfate [Iron] 325 mg PO TID 04/30/17 04/30/17 Unknown History guaiFENesin/CODEINE [Robitussin AC] 5 ml PO Q6H PRN #100 ml 04/30/17 Unknown Rx raNITIdine HCl [Acid Naval Designer] 150 mg PO DAILY 04/30/17 04/30/17 Unknown History Acetaminophen [Acetaminophen TAB] 500 mg PO Q6HR PRN #30 tablet 05/05/17 Unknown Rx Cyclobenzaprine [Flexeril] 10 mg PO TID PRN #10 tablet 05/05/17 Unknown Rx Ibuprofen [Motrin 800 MG tab] 800 mg PO Q8HR PRN #30 tablet 09/24/18 Unknown Rx Azithromycin [Zithromax Z-KADEEM] 250 mg PO DAILY #6 tablet 05/19/19 Unknown Rx Benzonatate [Tessalon Perles] 100 mg PO Q8HR PRN #20 capsule 05/19/19 Unknown Rx Tobramycin [Tobrex] 1 - 2 drops OP TID #5 ml 05/19/19 Unknown Rx predniSONE [Deltasone] 20 mg PO BID #10 tab 05/19/19 Unknown Rx ED Physical Exam - General Limitations: No Limitations General appearance: alert, in no apparent distress - Head Head exam: Present: atraumatic, normocephalic - Eye Eye exam: Present: normal appearance - ENT ENT exam: Present: mucous membranes moist - Neck Neck exam: Present: normal inspection - Respiratory Respiratory exam: Present: normal lung sounds bilaterally. Absent: respiratory distress - Cardiovascular Cardiovascular Exam: Present: regular rate, normal rhythm. Absent: systolic murmur, diastolic murmur, rubs, gallop - GI/Abdominal GI/Abdominal exam: Present: soft, normal bowel sounds - Extremities Exam Extremities exam: Present: normal inspection - Back Exam Back exam: Present: normal inspection - Neurological Exam Neurological exam: Present: alert, oriented X3 - Psychiatric Psychiatric exam: Present: normal affect, normal mood - Skin Skin exam: Present: warm, dry, intact, normal color. Absent: rash ED Course Vital Signs 05/19/19 05/19/19 05/19/19 05:04 05:19 05:38 Temperature 98.7 F Pulse Rate 86 78 Pulse Rate [ 88 Anterior Bilateral Throughout] Respiratory 20 20 Rate Respiratory 16 Rate [Anterior Bilateral Throughout] Blood Pressure 200/81 Blood Pressure 172/97 [Left] O2 Sat by Pulse 97 96 Oximetry 05/19/19 06:45 Temperature Pulse Rate 69 Pulse Rate [ Anterior Bilateral Throughout] Respiratory 18 Rate Respiratory Rate [Anterior Bilateral Throughout] Blood Pressure Blood Pressure 150/74 [Left] O2 Sat by Pulse 97 Oximetry ED Medical Decision Making - Radiology Data Radiology results: report reviewed, image reviewed Fluoro Time In Minutes: CHEST 2 VIEWS INDICATION / CLINICAL INFORMATION: sob. COMPARISON: 11/25/2018 FINDINGS: SUPPORT DEVICES: None. HEART / MEDIASTINUM: No significant abnormality. LUNGS / PLEURA: No significant pulmonary or pleural abnormality. No pneumothorax. ADDITIONAL FINDINGS: No significant additional findings. IMPRESSION: 1. No acute findings. Signer Name: Shabbir Johnson MD Signed: 05/19/2019 5:42 AM Workstation Name: [id number] Transcribed By: LEIA Dictated By: Shabbir Johnson MD Electronically Authenticated By: Shabbir Johnson MD Signed Date/Time: 05/19/19 0542 - Medical Decision Making 48-year-old female presents with asthma exacerbation (Mild) Pt also has bilateral conjunctivitis which she will be given antibiotic eyedrops for. ED course: Patient received a breathing treatment, prednisone, cough suppressant and Mag in the ED. Chest x-ray ordered, chest x-ray shows no acute findings. Patient had no respiratory distress in the ED. Post treatment evaluation: No wheezing heard, no use of accessory muscles, I discussed with the patient to follow up with her primary care physician. I discussed with the patient will be going home on with albuterol inhaler as well as nebulizer Patient reports feeling much better prior to discharge. Vital signs are normalized, patient is saturation at 97% on room air. I discussed with the patient is symptoms worsen to return to ED immediately. Critical care attestation.: If time is entered above; I have spent that time in minutes in the direct care of this critically ill patient, excluding procedure time. ED Disposition Clinical Impression: Conjunctivitis, Asthmatic bronchitis Disposition: TO HOME OR SELFCARE Is pt being admited?: No Does the pt Need Aspirin: No Condition: Stable Instructions: Conjunctivitis (ED), Chronic Bronchitis (ED) Additional Instructions: Make sure to follow up with the primary care physician as discussed. Take all your medications as you've been prescribed. If you have any worsening symptoms or develop new symptoms please return to ED immediately. Prescriptions: predniSONE [Deltasone] 20 mg PO BID #10 tab Benzonatate [Tessalon Perles] 100 mg PO Q8HR PRN #20 capsule PRN Reason: Cough Tobramycin [Tobrex] 1 - 2 drops OP TID #5 ml Azithromycin [Zithromax Z-KADEEM] 250 mg PO DAILY #6 tablet Referrals: PRIMARY CARE, [Primary Care Provider] - 3-5 Days [facility] [Outside] - 3-5 Days [facility] [Outside] - 3-5 Days Forms: Accompanied Note, Work/School Release Form(ED) Time of Disposition: 06:33
--- NOTE | 2019-05-19 05:46 | XRay Report ---
CHEST 2 VIEWS INDICATION / CLINICAL INFORMATION: sob. COMPARISON: 11/25/2018 FINDINGS: SUPPORT DEVICES: None. HEART / MEDIASTINUM: No significant abnormality. LUNGS / PLEURA: No significant pulmonary or pleural abnormality. No pneumothorax. ADDITIONAL FINDINGS: No significant additional findings. IMPRESSION: 1. No acute findings. Signer Name: Shabbir Johnson MD Signed: 05/19/2019 5:42 AM Workstation Name: [id number]
[2019-05-19] MEDS ORDERED: dexAMETHasone 20 MG/5 ML VIAL IV ONE (06:10)
[2019-05-19 06:47] VITALS: BP 150/74
== END 2019-05-19 06:55 | disposition home or self-care (01) ==
LOC: ED 05:01
DX: J45.909 Unspecified asthma, uncomplicated (principal); H10.9 Unspecified conjunctivitis; I10 Essential (primary) hypertension; D64.9 Anemia, unspecified; Z79.899 Other long term (current) drug therapy; Z91.010 Allergy to peanuts; Z91.018 Allergy to other foods
CPT/HCPCS: 71046; 94640; 96365; 96375; 99283; J1100; J3475; 94644

== ENCOUNTER 2019-06-17 06:49 | Emergency (ER) | payer MEDICARE ==
[2019-06-17 08:51] LABS: Basophils # (Auto) 0.1 K/mm3 (0.0-0.1); Basophils % (Auto) 0.8 % (0.0-1.8); Eosinophils # (Auto) 0.1 K/mm3 (0.0-0.4); Eosinophils % (Auto) 0.7 % (0.0-4.3); Lymphocytes # (Auto) 1.7 K/mm3 (1.2-5.4); Lymphocytes % (Auto) 21.5 % (13.4-35.0); Mean Corpuscular HGB Conc 30 % (30-34); Monocytes # (Auto) 0.5 K/mm3 (0.0-0.8); Monocytes % (Auto) 6.3 % (0.0-7.3); Platelet Count 292 K/mm3 (140-440); Red Blood Count 5.45 M/mm3 (3.65-5.03); Red Cell Distribution Width 16.5 % (13.2-15.2)
[2019-06-17 08:59] LABS: BUN/Creatinine Ratio 13; Blood Urea Nitrogen 8 mg/dL (7-17); Calcium 9.1 mg/dL (8.4-10.2); Hematocrit 37.9 % (30.3-42.9); Hemoglobin 11.3 gm/dl (10.1-14.3); Hemolysis Index 12; Mean Corpuscular Volume 69 fl (79-97)
[2019-06-17] MEDS ORDERED: MORPHINE 4 MG/1 ML INJ IV STA (10:10)
[2019-06-17] MEDS ORDERED: SODIUM CHLORIDE 0.9% 1000 ML 1,000 ML IV ONE (10:10)
[2019-06-17] MEDS ORDERED: ONDANSETRON 4 MG/2 ML INJ IV ONE (10:13)
--- NOTE | 2019-06-17 11:26 | Emergency Department Report ---
ED General Adult HPI - General Chief complaint: Abdominal Pain Stated complaint: ABD PAIN/EMESIS Time Seen by Provider: 06/17/19 09:46 Source: patient Mode of arrival: Ambulatory Limitations: No Limitations - History of Present Illness Initial comments: 48 BF states that she awakened this morning at 2 AM with nausea, dizziness and lower left abdominal pain that radiates to her back. She denies a hysterectomy and any symptoms similar to this in her past. -: This morning Location: abdomen Radiation: back Severity scale (0 -10): 10 Quality: aching Consistency: constant Improves with: none Worsens with: none Associated Symptoms: nausea/vomiting Treatments Prior to Arrival: none - Related Data Home Medications Medication Instructions Recorded Confirmed Last Taken Montelukast [Singulair] 10 mg PO QDAY 02/10/13 04/30/17 02/10/13 08:00 Ferrous Sulfate [Iron] 325 mg PO TID 04/30/17 04/30/17 Unknown raNITIdine HCl [Acid Micro Lab Analyst] 150 mg PO DAILY 04/30/17 04/30/17 Unknown Previous Rx's Medication Instructions Recorded Last Taken Type Budesoni/Formotero 160-4.5(Nf) 2 puff IH BID #1 inha 09/22/13 Unknown Rx [Symbicort 160-4.5 (Nf)] Multivitamin Tab W-MINERAL 1 each PO QDAY #30 tablet 08/11/14 Unknown Rx [Multiple Vitamin/Mineral (Theragran M)] ALBUTEROL NEB's [Proventil 0.083% 2.5 mg IH TID PRN #1 box 11/10/15 Unknown Rx NEBS] Albuterol Sulfate [Ventolin HFA] 2 puff IH Q4H PRN #1 hfa.aer.ad 11/10/15 Unknown Rx guaiFENesin/CODEINE [Robitussin AC] 5 ml PO Q6H PRN #100 ml 04/30/17 Unknown Rx Acetaminophen [Acetaminophen TAB] 500 mg PO Q6HR PRN #30 tablet 05/05/17 Unknown Rx Cyclobenzaprine [Flexeril] 10 mg PO TID PRN #10 tablet 05/05/17 Unknown Rx Ibuprofen [Motrin 800 MG tab] 800 mg PO Q8HR PRN #30 tablet 09/24/18 Unknown Rx Azithromycin [Zithromax Z-KADEEM] 250 mg PO DAILY #6 tablet 05/19/19 Unknown Rx Benzonatate [Tessalon Perles] 100 mg PO Q8HR PRN #20 capsule 05/19/19 Unknown Rx Tobramycin [Tobrex] 1 - 2 drops OP TID #5 ml 05/19/19 Unknown Rx predniSONE [Deltasone] 20 mg PO BID #10 tab 05/19/19 Unknown Rx Ibuprofen [Motrin 600 MG tab] 600 mg PO Q8H PRN #21 tablet 06/17/19 Unknown Rx traMADoL [Ultram 50 MG tab] 50 mg PO Q6HR PRN #10 tablet 06/17/19 Unknown Rx Allergies Allergy/AdvReac Type Severity Reaction Status Date / Time peanut Allergy Severe Hives Verified 08/24/14 14:29 MUSHROOMS Allergy Severe Swelling Uncoded 08/24/14 14:29 SEASALT Allergy Intermediate Hives Uncoded 08/24/14 14:29 ED Review of Systems ROS: Stated complaint: ABD PAIN/EMESIS Other details as noted in HPI Comment: All other systems reviewed and negative Constitutional: see HPI Gastrointestinal: as per HPI ED Past Medical Hx - Past Medical History Hx Hypertension: (taken off medication years ago) Hx CVA: No Hx Heart Attack/AMI: No Hx Congestive Heart Failure: No Hx Diabetes: No Hx Deep Vein Thrombosis: No Hx Pulmonary Embolism: No Hx GERD: No Hx Liver Disease: No Hx Renal Disease: No Hx Sickle Cell Disease: No Hx Arthritis: No Hx Headaches / Migraines: No Hx Seizures: No Hx Kidney Stones: No Hx Psychiatric Treatment: No Hx Asthma: Yes (severe and not on any symbicort while in hospital.) Hx COPD: Yes Hx Tuberculosis: No Hx Dementia: No Hx HIV: No Additional medical history: anemia, OBESITY - Surgical History Hx Coronary Stent: No Hx Open Heart Surgery: No Hx Pacemaker: No Hx Internal Defibrillator: No Hx Cholecystectomy: No Hx Appendectomy: No Hx Breast Surgery: No Additional Surgical History: AFRO to check for blockage in legs - Social History Smoking Status: Never Smoker Substance Use Type: None - Medications Home Medications: Home Medications Medication Instructions Recorded Confirmed Last Taken Type Montelukast [Singulair] 10 mg PO QDAY 02/10/13 04/30/17 02/10/13 08:00 History Budesoni/Formotero 160-4.5(Nf) 2 puff IH BID #1 inha 09/22/13 04/30/17 Unknown Rx [Symbicort 160-4.5 (Nf)] Multivitamin Tab W-MINERAL 1 each PO QDAY #30 tablet 08/11/14 04/30/17 Unknown Rx [Multiple Vitamin/Mineral (Theragran M)] ALBUTEROL NEB's [Proventil 0.083% 2.5 mg IH TID PRN #1 box 11/10/15 04/30/17 Unknown Rx NEBS] Albuterol Sulfate [Ventolin HFA] 2 puff IH Q4H PRN #1 hfa.aer.ad 11/10/15 04/30/17 Unknown Rx Ferrous Sulfate [Iron] 325 mg PO TID 04/30/17 04/30/17 Unknown History guaiFENesin/CODEINE [Robitussin AC] 5 ml PO Q6H PRN #100 ml 04/30/17 Unknown Rx raNITIdine HCl [Acid Micro Lab Analyst] 150 mg PO DAILY 04/30/17 04/30/17 Unknown History Acetaminophen [Acetaminophen TAB] 500 mg PO Q6HR PRN #30 tablet 05/05/17 Unknown Rx Cyclobenzaprine [Flexeril] 10 mg PO TID PRN #10 tablet 05/05/17 Unknown Rx Ibuprofen [Motrin 800 MG tab] 800 mg PO Q8HR PRN #30 tablet 09/24/18 Unknown Rx Azithromycin [Zithromax Z-KADEEM] 250 mg PO DAILY #6 tablet 05/19/19 Unknown Rx Benzonatate [Tessalon Perles] 100 mg PO Q8HR PRN #20 capsule 05/19/19 Unknown Rx Tobramycin [Tobrex] 1 - 2 drops OP TID #5 ml 05/19/19 Unknown Rx predniSONE [Deltasone] 20 mg PO BID #10 tab 05/19/19 Unknown Rx Ibuprofen [Motrin 600 MG tab] 600 mg PO Q8H PRN #21 tablet 06/17/19 Unknown Rx traMADoL [Ultram 50 MG tab] 50 mg PO Q6HR PRN #10 tablet 06/17/19 Unknown Rx ED Physical Exam - General Limitations: No Limitations General appearance: alert, in no apparent distress - Head Head exam: Present: atraumatic, normocephalic - Eye Eye exam: Present: normal appearance, PERRL, EOMI - ENT ENT exam: Present: normal exam, normal orophraynx, normal external ear exam - Neck Neck exam: Present: normal inspection, tenderness, full ROM - Respiratory Respiratory exam: Present: normal lung sounds bilaterally. Absent: respiratory distress, wheezes - Cardiovascular Cardiovascular Exam: Present: regular rate, normal rhythm, normal heart sounds - GI/Abdominal GI/Abdominal exam: Present: soft, tenderness (epigastric), normal bowel sounds. Absent: rigid - Rectal Rectal exam: Present: deferred - Extremities Exam Extremities exam: Present: normal inspection, full ROM. Absent: tenderness - Back Exam Back exam: Present: full ROM, CVA tenderness (L). Absent: normal inspection - Neurological Exam Neurological exam: Present: alert, altered, oriented X3 - Psychiatric Psychiatric exam: Present: normal affect, normal mood. Absent: depressed - Skin Skin exam: Present: warm, dry, intact ED Course Vital Signs 06/17/19 07:25 Temperature 98.2 F Pulse Rate 70 Respiratory 18 Rate Blood Pressure 159/76 [Right] O2 Sat by Pulse 100 Oximetry ED Medical Decision Making - Lab Data Result diagrams: 06/17/19 08:28 06/17/19 08:28 - Radiology Data [facility] [address] [place] [address] Cat Scan Report Signed Patient: GALEN ROBERTSON MR#: [id number] : 1970 Acct:[id number] Age/Sex: 48 / F ADM Date: 06/17/19 Loc: ED Attending Dr: Ordering Physician: DENICE HALE PA-C Date of Service: 06/17/19 Procedure(s): CT abdomen pelvis wo con Accession Number(s): [id number] cc: DENICE HALE PA-C CT ABDOMEN AND PELVIS WITHOUT CONTRAST HISTORY: abdominal pain COMPARISON: None TECHNIQUE: Routine abdominal and pelvic CT exam performed without contrast. Lack of intravenous contrast limits evaluation of the vascular and solid organs. Note: All CT scans at this location are performed using CT dose reduction employed for ALARA by means of automated exposure control. CONTRAST: None. FINDINGS: CT ABDOMEN: Lung Bases: Clear. Liver: No significant abnormality. Biliary: Normal gallbladder and bile ducts. Spleen: No significant abnormality. Unenlarged. Pancreas: No significant abnormality. Mild fatty replacement of the pancreas. Adrenals: No significant abnormality. Kidneys: No significant abnormality. The renal collecting systems and ureters are nondilated. No urinary calculus. Lymphatics: No lymphadenopathy. Vasculature: No significant abnormality. Bowel/Peritoneum: No significant abnormality. No free air. No free fluid. Normal appendix. CT PELVIC: : An enlarged uterus measures 16.5 x 8.5 x 9.3 cm. Probable uterine fibroids. Normal ovaries. A 2 cm dominant follicle of the right ovary. No adnexal mass or free fluid. Osseous Structures: No significant abnormality. Additional Findings: None IMPRESSION: 1. Normal abdomen. 2. Enlarged uterus with probable uterine fibroids. Signer Name: Martín Vivas MD Signed: 06/17/2019 11:35 AM Workstation Name: [id number] Transcribed By: REF Dictated By: MARTÍN VIVAS MD Electronically Authenticated By: MARTÍN VIVAS MD Signed Date/Time: 06/17/19 1135 DD/ 1126 TD/TT: - Medical Decision Making 48 BF states that she awakened this morning at 2 AM with nausea, dizziness and lower left abdominal pain that radiates to her back. She denies a hysterectomy and any symptoms similar to this in her past. Pt was explained that her imaging showed uterine fibroids and that she will be referred to Gynecology for further eval. Pt was given Ibuprofen and Tramadol tablets for pain. [place] [employer]OX PRINTER AWARE utilized before prescribing. She was told to not drink drive or lift heavy objects while on the pain medication. Pt verbalized understanding and will see E R as needed. Critical care attestation.: If time is entered above; I have spent that time in minutes in the direct care of this critically ill patient, excluding procedure time. ED Disposition Clinical Impression: Uterine fibroid Disposition: DC-01 TO HOME OR SELFCARE Is pt being admited?: No Does the pt Need Aspirin: No Condition: Stable Instructions: Uterine Fibroids (ED), Abdominal Pain (ED) Additional Instructions: Pt was explained that her imaging showed uterine fibroids and that she will be referred to Gynecology for further eval. Pt was given Ibuprofen and Tramadol tablets for pain. She was told to not drink drive or lift heavy objects while on the pain medication. Pt verbalized understanding and will see ER as needed. Prescriptions: Ibuprofen [Motrin 600 MG tab] 600 mg PO Q8H PRN #21 tablet PRN Reason: Pain traMADoL [Ultram 50 MG tab] 50 mg PO Q6HR PRN #10 tablet PRN Reason: Pain Referrals: PRIMARY CARE,MD [Primary Care Provider] - 3-5 Days JOHN HUNG CNM [Staff Physician] - 3-5 Days Time of Disposition: 12:27
--- NOTE | 2019-06-17 11:39 | Cat Scan Report ---
CT ABDOMEN AND PELVIS WITHOUT CONTRAST HISTORY: abdominal pain COMPARISON: None TECHNIQUE: Routine abdominal and pelvic CT exam performed without contrast. Lack of intravenous cont rast limits evaluation of the vascular and solid organs. Note: All CT scans at this location are performed using CT dose reduction employed for ALARA by means of automated exposure control. CONTRAST: None. FINDINGS: CT ABDOMEN: Lung Bases: Clear. Liver: No significant abnormality. Biliary: Normal gallbladder and bile ducts. Spleen: No significant abnormality. Unenlarged. Pancreas: No significant abnormality. Mild fatty replacement of the pancreas. Adrenals: No significant abnormality. Kidneys: No significant abnormality. The renal collecting systems and ureters are nondilated. No urin elinor calculus. Lymphatics: No lymphadenopathy. Vasculature: No significant abnormality. Bowel/Peritoneum: No significant abnormality. No free air. No free fluid. Normal appendix. CT PELVIC: : An enlarged uterus measures 16.5 x 8.5 x 9.3 cm. Probable uterine fibroids. Normal ovaries. A 2 c m dominant follicle of the right ovary. No adnexal mass or free fluid. Osseous Structures: No significant abnormality. Additional Findings: None IMPRESSION: 1. Normal abdomen. 2. Enlarged uterus with probable uterine fibroids. Signer Name: Brandon Wheat MD Signed: 06/17/2019 11:35 AM Workstation Name: [id number]
[2019-06-17 12:04] LABS: HCG Qualitative,Urine Negative (Negative)
[2019-06-17 12:05] LABS: Bilirubin,Urine NEG (Negative); Blood,Urine NEG (Negative); Color,Urine Yellow (Yellow); Mucus,Urine FEW /HPF; Protein,Urine <15 mg/dL mg/dL (Negative); Urobilinogen,Urine < 2.0 mg/dL (<2.0); WBC,Urine < 1.0 /HPF (0.0-6.0)
[2019-06-17 12:41] VITALS: BP 154/71
== END 2019-06-17 12:40 | disposition home or self-care (01) ==
LOC: ED 06:49
DX: D25.9 Leiomyoma of uterus, unspecified (principal); R42 Dizziness and giddiness; J44.9 Chronic obstructive pulmonary disease, unspecified; Z91.010 Allergy to peanuts; Z91.018 Allergy to other foods; Z79.899 Other long term (current) drug therapy
CPT/HCPCS: 36415; 74176; 80048; 81001; 81025; 83690; 85025; 93005; 93010; 96361; 96374; 96375; 99284; J2270; J2405; J7030